=== PATIENT | female | born 1975 | race Two or more races ===

== ENCOUNTER 2024-09-22 14:03 | Inpatient (IN) | payer MEDICAID, OTHER ==
[~2024-09-22] VITALS: Ht 167.6 cm; Wt 107.1 kg
--- NOTE | 2024-09-22 14:42 | ED.PDOC ---
HPI (NEURO) HPI Comments HPI: Poor Historian. 49-year-old female brought in by her daughter for evaluation of seizure-like activity that was witnessed by the daughter in the back seat with the patient was riding in the car. Daughter describes episode as seizure-like activity that lasted approximately 1 minute. There was an episode of urinary incontinence in her car. They went home changed her clothing and brought her back here for evaluation. According to the daughter mother has been having multiple syncopal episodes almost daily recently but did not seek any medical attention. But today was probably the 1st time she sees seizure-like activities that concerned the daughter. Patient does not remember all the details of what happened today. Denies any fall or trauma or injury. Past Medical History: Put use disorder, marijuana use, anxiety, depression, possible diabetes, Past Surgical History: Back surgery, mastoiditis surgery REVIEW OF SYSTEMS: CONSTITUTIONAL: Denies acute: fever, diaphoresis, chills, HEAD: Denies acute: headache, photophobia Eyes: Denies acute: Double vision, vision loss, eye pain, eye discharge. EARS: Denies acute: tinnitus, hearing loss, ear discharge, ear pain, THROAT: Denies acute: sore throat, swelling, difficulty swallowing , pain with swallowing, change in voice. NECK: Denies acute: neck pain, neck swelling, stiff neck. HEART: Denies acute : chest pain, palpitations, LUNGS: Denies acute: SOB, wheezing, cough, hemoptysis ABDOMEN: Denies acute: abdominal pain, Nausea, Vomiting, diarrhea, melena , hematemesis, hematochezia SKIN: Denies acute: rash, redness, lesions, itchiness. EXTREMITIES: Denies acute: calf pain, numbness, tingling, weakness, denies pain in extremity. Denies acute: Low back pain. Neuro: Denies acute: focal neurological deficit, motor or sensory focal neurological deficit, , confusion, dizziness, , cauda equina like symptoms. : Denies acute: dysuria, hematuria, flank pain, increase in urinary frequency. PSYCH: Denies acute: hallucination, suicidal ideation, homicidal ideation. FEMALE: Denies acute: abnormal vaginal bleeding, foul odor, unusual discharge. PHYSICAL EXAM: General: ----mild----acute distress, awake and alert. Head: normocephalic, atraumatic. Neck: supple, trachea is midline, no swelling. Throat: Normal phonation. Eyes:, no erythema, no purulent discharge, no proptosis, no icterus. Heart: regular rate, regular rhythm, no significant murmur appreciated. Lungs: no apparent respiratory distress, Able to speak in full sentences. No wheezing, no rhonchi, no crackles. No stridors Clear to auscultation bilaterally. Abdomen: non tender to palpation, non distended, soft, no guarding, no rebound, + bowel sounds. Neuro: Awake, Alert, oriented to name, self, situation, follows commands GCS=15. Speech is normal. Skin: no petechia, no purpura, no cyanosis, non-pale, not jaundice. Lower extremities: --no - Pitting edema no deformity, no focal swelling, no calf TTP. Makes eye contact. moves all four extremities. Face: no apparent facial droop. Ambulating in the ED independently. PERRLA, EOM-I CN 2-12 are grossly intact, ble. No nystagmus. ED COURSE: Chief Complaint: Seizure Time Seen by MD: 14:17 Primary Care Provider: RENAE Courtney Notes: Nurses Notes, Allergies Information Source: Patient, Relative Mode of Arrival: Ambulatory Was a procedure done? Was a procedure done?: No Differential Diagnosis (SZ) Seizure: Other (SEIZUREDDX include not limited to CVA, cerebellar ischemia/infarct, carotid stenosis, vertebral/carotid artery dissection,, vertebrobasillary insufficiency, Intracranial mass/infection/bleed, encephalopathy, elctrolyte abnormality, thyroid disease, multiple sclerosis, hypoglycemia, drug toxicity, cardiac arrhythmia, sub-theraputic anti-convulsion medications, known seizure disorder, pseudo-seizure.) General Weakness: Anemia, CVA, Dehydration, Dysrhythmia, Electrolyte imbalance, Encephalopathy, Guillain-Berlin, Hypoglycemia, Hypotension, Hypovolemia, Labyrinthitis, Meniere's disease, Myasthenia gravis, Myocardial infarction, Pulmonary embolus, Renal failure, Repiratory failure, TIA, VBI, Vertigo: central, Vertigo: peripheral, Vestibular neuronitis X-Ray, Labs, Meds, VS Vital Signs Date Time Temp Pulse Resp B/P (MAP) Pulse Ox O2 Delivery O2 Flow Rate FiO2 09/22/24 14:31 65 09/22/24 14:26 98.3 70 18 139/74 (95) 97 98.3 Lab Test 09/22/24 17:43 09/22/24 15:24 09/22/24 14:36 09/22/24 14:30 Range/Units Troponin I High Sensitivity 49 *H 16 8 </=34 ng/L White Blood Count 3.1 L 4.4-10.8 10^3/uL Red Blood Count 4.57 4.0-5.20 10^6/uL Hemoglobin 13.0 12.2-16.2 g/dL Hematocrit 38.0 36.0-46.0 % Mean Corpuscular Volume 83.2 80.0-100.0 fL Mean Corpuscular Hemoglobin 28.5 28.0-32.0 pg Mean Corpuscular Hemoglobin Concent 34.2 32.0-36.0 g/dL Red Cell Distribution Width 14.1 11.8-14.3 % Platelet Count 154 140-450 10^3/uL Mean Platelet Volume 8.1 6.9-10.8 fL Neutrophils (%) (Auto) 63.7 37.0-80.0 % Lymphocytes (%) (Auto) 26.6 10.0-50.0 % Monocytes (%) (Auto) 5.5 0.0-12.0 % Eosinophils (%) (Auto) 3.5 0.0-7.0 % Basophils (%) (Auto) 0.7 0.0-2.0 % Neutrophils # (Auto) 2.0 1.6-8.6 10 ^3/uL Lymphocytes # (Auto) 0.8 0.4-5.4 10 ^3/uL Monocytes # (Auto) 0.2 0-1.3 10 ^3/uL Eosinophils # (Auto) 0.1 0-0.8 10 ^3/uL Basophils # (Auto) 0 0-0.2 10 ^3/uL Nucleated Red Blood Cells 0.1 % Sodium Level 144 136-145 mmol/L Potassium Level 4.3 3.5-5.1 mmol/L Chloride Level 107 98-107 mmol/L Carbon Dioxide Level 32 H 20-31 mmol/L Anion Gap 5 5-15 Blood Urea Nitrogen 16 9-23 mg/dL Creatinine 1.03 H 0.550-1.02 mg/dL Glomerular Filtration Rate Calc 66 >90 mL/min BUN/Creatinine Ratio 15.5 10.0-20.0 Serum Glucose 106 74-106 mg/dL Lactic Acid Level 1.0 0.4-2.0 mmol/L Calcium Level 9.8 8.7-10.4 mg/dL Magnesium Level 1.8 1.6-2.6 mg/dL Total Bilirubin 0.4 0.2-1.0 mg/dL Aspartate Amino Transferase (AST) 33 13-40 U/L Alanine Aminotransferase (ALT) 47 H 7-40 U/L Alkaline Phosphatase 91 46-116 U/L Ammonia < 10 L 11-32 umol/L Total Protein 7.7 5.7-8.2 g/dL Albumin 4.4 3.2-4.8 g/dL Urine Color Yellow Yellow Urine Clarity Turbid H Clear Urine pH 6.0 5.0-9.0 Urine Specific [place] 1.025 1.001-1.035 Urine Protein 1+ H Negative Urine Ketones Negative Negative Urine Blood Negative Negative /uL Urine Nitrite Negative Negative Urine Bilirubin Negative Negative Urine Urobilinogen Normal Negative mg/dL Urine Leukocyte Esterase 3+ Negative /uL Urine RBC 4 0 - 4 /hpf Urine Microscopic WBC 47 H 0-5 /HPF Urine Squamous Epithelial Cells Mod <5 /hpf Urine Bacteria Few H None Seen /hpf Urine Mucus Few None Seen Urine Glucose Normal Normal mg/dL Urine Opiates Screen Neg NEGATIVE Urine Fentanyl Screen Neg NEGATIVE Urine Barbiturates Screen Neg NEGATIVE Urine Phencyclidine Screen Neg NEGATIVE Urine Amphetamines Screen Neg NEGATIVE Urine Benzodiazepines Screen Neg NEGATIVE Urine Cocaine Screen Neg NEGATIVE Urine Cannabinoids Screen Pos NEGATIVE Test 09/22/24 14:19 Range/Units POC Glucose 115 H 70-106 mg/dl [address] [address] Ph: [phone] DIAGNOSTIC IMAGING Diagnostic Imaging Report : [id number] Signed PATIENT: BOOGIE BECKACCT: [id number] UNIT: [id number] : 1975 LOC: ER ROOM / BED: / AGE / SEX: 49 / F ADM STATUS: REG ER SERVICE [id number] ORDERING PHYSICIAN: DASHA ELY DO PROCEDURE(s): HWOCT - HEAD WITHOUT CONTRAST REASON: SEIZURE LIKE, ORDER NUMBER(s): [id number], ACCESSION NUMBER(s): [id number] EXAM: CT HEAD WITHOUT CONTRAST INDICATION: SEIZURE LIKE, TECHNIQUE: CT of the head without intravenous contrast. Radiation Dose : 1. Head: CT Dose: CTDI volume is 57.43 mGy. Dose-length product is 113 1.75 mGy*cm The dose indicators for CT are the volume Computed Tomography (CT) Dose Index (CTDIvol) and the Dose Length Product (DLP), and are measured in units of mGy and mGy-cm, respectively. These indicators are not patient dose, but values generated from the CT scanner acquisition factors. The report includes radiation exposure data for exposures received during this examination. COMPARISON: None FINDINGS: There is no evidence of acute intracranial hemorrhage, extra-axial collection, mass effect, midline shift, herniation or hydrocephalus. The ventricles, sulci and cisterns are age appropriate. The triplett-white differentiation is intact. Patchy periventricular and subcortical white matter hypoattenuation is nonspecific but may be related to small vessel ischemic disease. The visualized paranasal sinuses and mastoid air cells are clear. The surrounding soft tissues and osseous structures are unremarkable. IMPRESSION: 1. No acute intracranial abnormality. Radiation optimization: All CT scans at this facility use at least one of these dose optimization techniques: automated exposure control mA and/or kV adjustment per patient size (includes targeted exams where dose is matched to clinical indication) or iterative reconstruction. ATED BY: RICO MAYORGA MD DICTATED DATE/TIME: 09/22/241511 SIGNED BY: RICO MAYORGA MD SIGNED DATE/TIME: 09/22/241511 CC: [place] [id number] Ph: [phone] DIAGNOSTIC IMAGING Diagnostic Imaging Report : [id number] Signed PATIENT: BOOGIE BECKACCT: [id number] UNIT: [id number] : 1975 LOC: ER ROOM / BED: / AGE / SEX: 49 / F ADM STATUS: REG ER SERVICE [id number] ORDERING PHYSICIAN: DASHA ELY DO PROCEDURE(s): CXRP - CHEST PORTABLE REASON: SEIZURE LIKE ACTIVITY. ORDER NUMBER(s): [id number], ACCESSION NUMBER(s): [id number] EXAM: XR Chest, 1 View CLINICAL INDICATION: SEIZURE LIKE ACTIVITY. TECHNIQUE: Frontal view of the chest. COMPARISON: None FINDINGS: LUNGS AND PLEURAL SPACES: Unremarkable. No consolidation. No pneumothorax. HEART: Unremarkable. No cardiomegaly. MEDIASTINUM: Unremarkable. Normal mediastinal contour. BONES/JOINTS: Unremarkable. No acute fracture. OTHER FINDINGS: . IMPRESSION: No acute cardiopulmonary process. ATED BY: JOB NORTON MD DICTATED DATE/TIME: 09/22/241510 SIGNED BY: JOB NORTON MD SIGNED DATE/TIME: 09/22/241510 CC: Time of 1ST Reevaluation: 21:02 Reevaluation 1ST: Improved Patient Education/Counseling: Diagnosis, Treatment Family Education/Counseling: Diagnosis, Treatment Comments Patient presented with the above HPI.---seizure-like activity/syncope---workup was initiated. patient was found with the above mentioned diagnosis. the following medications were ordered: please refer to order lists of meds and tests obtained by myself Dr. Ely. Patient ED course and VS have been stabilized. Patient has been reassessed in the ED and remained in a stable condition. Pertinent incidental findings were discussed with the patient and/or family. Patient/family voices understanding and is agreeable with plan. Patient has been observed in the ED adequate length of time to insure improvement/stability. Escalation of care considered: Consideration of escalation to observation or admission Patient was ADMITTED to the medicine team for further evaluation and treatment of their presentation. All the reports of any imaging studies that were ordered by myself were reviewed by myself. Departure 1 Departure Time of Disposition: 15:16 Impression: Primary Impression: Syncope and collapse Additional Impressions: Seizure-like activity Elevated troponin UTI (urinary tract infection) Disposition: ADMITTED INPATIENT Admit to: [facility] Condition: Guarded Discharged With: Self Critical Care Note Critical Care Time?: Yes (45 min-critical care time only) Heart Score Heart Score: Heart Score Response (Comments) Value History Slightly Suspicious 0 EKG Normal 0 Age 45-64 1 Risk Factors 1 or 2 risk factors 1 Troponin 1-2 x's Normal limit 1 Total 3 I personally scribed for DASHA ELY DO ([email or web address]) on 09/22/24 at 20:44. Electronically submitted by Al Lau ([facility]). DASHA ELY DO September 22, 2024 14:42
[2024-09-22 14:52] LABS: Basophils # (auto) 0 10 ^3/uL (0-0.2); Basophils % (auto) 0.7 % (0.0-2.0); Eosinophils # (auto) 0.1 10 ^3/uL (0-0.8); Eosinophils % (auto) 3.5 % (0.0-7.0); Lymphocytes # (auto) 0.8 10 ^3/uL (0.4-5.4); Lymphocytes % (auto) 26.6 % (10.0-50.0); Mean Corpuscular Hemoglobin 28.5 pg (28.0-32.0); Mean Corpuscular Hgb Conc. 34.2 g/dL (32.0-36.0); Mean Corpuscular Volume 83.2 fL (80.0-100.0); Monocytes # (auto) 0.2 10 ^3/uL (0-1.3); Monocytes % (auto) 5.5 % (0.0-12.0); Neutrophils % (auto) 63.7 % (37.0-80.0); Nucleated Red Blood Cells % 0.1 %; Platelet Count (auto) 154 10^3/uL (140-450); Red Blood Cells 4.57 10^6/uL (4.0-5.20); Red Cell Distribution Width 14.1 % (11.8-14.3); White Blood Cell 3.1 10^3/uL (4.4-10.8)
[2024-09-22 15:07] LABS: Albumin 4.4 g/dL (3.2-4.8); Alkaline Phosphatase 91 U/L (46-116); Anion Gap 5 (5-15); Aspartate Aminotransferase 33 U/L (13-40); BUN/Creatinine Ratio 15.5 (10.0-20.0); Bilirubin, Total 0.4 mg/dL (0.2-1.0); Blood Urea Nitrogen 16 mg/dL (9-23); Calcium 9.8 mg/dL (8.7-10.4); Chloride 107 mmol/L (98-107); Magnesium 1.8 mg/dL (1.6-2.6); Potassium 4.3 mmol/L (3.5-5.1); Sodium 144 mmol/L (136-145); Total Protein 7.7 g/dL (5.7-8.2)
--- NOTE | 2024-09-22 15:13 | DVH ---
EXAM: XR Chest, 1 View CLINICAL INDICATION: SEIZURE LIKE ACTIVITY. TECHNIQUE: Frontal view of the chest. COMPARISON: None FINDINGS: LUNGS AND PLEURAL SPACES: Unremarkable. No consolidation. No pneumothorax. HEART: Unremarkable. No cardiomegaly. MEDIASTINUM: Unremarkable. Normal mediastinal contour. BONES/JOINTS: Unremarkable. No acute fracture. OTHER FINDINGS: . IMPRESSION: No acute cardiopulmonary process.
--- NOTE | 2024-09-22 15:14 | DVH ---
EXAM: CT HEAD WITHOUT CONTRAST INDICATION: SEIZURE LIKE, TECHNIQUE: CT of the head without intravenous contrast. Radiation Dose : 1. Head: CT Dose: CTDI volume is 57.43 mGy. Dose-length product is 1131.75 mGy*cm The dose indicators for CT are the volume Computed Tomography (CT) Dose Index (CTDIvol) and the Dose Length Product (DLP), and are measured in units of mGy and mGy-cm, respectively. These indicators are not patient dose, but values generated from the CT scanner acquisition factors. The report includes radiation exposure data for exposures received during this examination. COMPARISON: None FINDINGS: There is no evidence of acute intracranial hemorrhage, extra-axial collection, mass effect, midline s hift, herniation or hydrocephalus. The ventricles, sulci and cisterns are age appropriate. The triplett-white differentiation is intact. Patchy periventricular and subcortical white matter hypoattenuation is nonspecific but may be related to small vessel ischemic disease. The visualized paranasal sinuses and mastoid air cells are clear. The surrounding soft tissues and osseous structures are unremarkable. IMPRESSION: 1. No acute intracranial abnormality. Radiation optimization: All CT scans at this facility use at least one of these dose optimization adriel hniques: automated exposure control mA and/or kV adjustment per patient size (includes targeted exam s where dose is matched to clinical indication) or iterative reconstruction.
[2024-09-22 15:15] LABS: Alanine Aminotransferase 47 U/L (7-40); Carbon Dioxide 32 mmol/L (20-31); Glucose 106 mg/dL (74-106)
[2024-09-22 15:30] LABS: Cannabinoid Screen, Urine Pos (NEGATIVE)
[2024-09-22 15:33] LABS: Amphetamine Screen, Urine Neg (NEGATIVE); Barbiturate Scree,Urine Neg (NEGATIVE); Benzodiazephine Screen, Urine Neg (NEGATIVE); Cocaine Screen, Urine Neg (NEGATIVE); Opiate Scree,Urine Neg (NEGATIVE); Phencyclidine Screen, Urine Neg (NEGATIVE)
[2024-09-22 15:40] LABS: Urine Bacteria FEW /hpf (None Seen); Urine Blood Negative /uL (Negative); Urine Clarity Turbid (Clear); Urine Color Yellow (Yellow); Urine Mucus FEW (None Seen); Urine Protein, UAD 1+ (Negative); Urine Specific Gravity 1.025 (1.001-1.035); Urine Squamous Epithelial Cell MOD /hpf (<5); Urine Urobilinogen Normal (Negative); Urine WBC 47 /HPF (0-5)
[2024-09-22] MEDS ORDERED: ONDANSETRON HCL 4 MG/2 ML VIAL IV PRN (19:15)
[2024-09-22] MEDS ORDERED: TEMAZEPAM 15 MG CAP PO PRN (19:15)
[2024-09-22] MEDS ORDERED: LORazepam 2MG/ML-1ML VIAL IV PRN (19:15)
[2024-09-23] VITALS (9 sets, daily range): BP systolic 135–170; BP diastolic 62–78; PULSE 50–62; RESP 15–19; TEMP 97.4–98.5; O2SAT 94–98
[2024-09-23] MEDS: ASPirin-EC 325mg tab PO ONE (00:01)
[2024-09-23] MEDS: cloNIDine HCL 0.1 MG TAB PO ONE (00:02)
[2024-09-23] MEDS: busPIRone HCL 10 MG TAB PO SCH (00:02)
--- NOTE | 2024-09-23 00:08 | DVHHP2 ---
History of Present Illness Reason for Visit: Seizure History of Present Illness 49-year-old female presents for evaluation of seizure-like activity. Patient denies previous history of seizure or being on medication. Patient had a seizure episode witnessed by her daughter lasting approximately 1 minute. Denies head trauma or oral trauma. She does report urinary incontinence. Currently denies headache or blurred vision. No other acute complaints reported. Past Medical History Depression Past Surgical History Back surgery Family History Noncontributory Smoke: No ALCOHOL: occassional Drugs: Marijuana Lives: with Family Review of Systems Review of Systems Review of systems are currently negative otherwise addressed in HPI. Allergies: Uncoded Allergies: ALL CILLINS (Allergy, Severe, 09/22/24) Medications Current Medications Medications Dose Ordered Sig/Chelsea Route Start Time Stop Time Status Last Admin Dose Admin Buspirone HCl 15 mg Q12HR PO 09/22/24 22:00 09/23/24 00:02 15 MG Lorazepam 1 mg Q5MINP PRN IV 09/22/24 19:15 Aspirin 81 mg DAILY PO 09/23/24 10:00 Temazepam 15 mg QHSP PRN PO 09/22/24 19:15 Ondansetron HCl 4 mg Q4HP PRN IV 09/22/24 19:15 Acetaminophen 650 mg Q6HP PRN PO 09/22/24 19:15 Exam Vital Signs Vital Signs Date Time Temp Pulse Resp B/P (MAP) Pulse Ox O2 Delivery O2 Flow Rate FiO2 09/23/24 00:02 191/72 09/22/24 20:46 Room Air* 0 21 09/22/24 20:46 98.0 66 12 95 98.0 Exam Gen: 49-year-old female in no apparent distress Skin: Warm, dry, normal color and texture, no rash. HEENT: Normocephalic atraumatic, mucous membranes moist and pink. Neck: Cervical and supraclavicular nodes normal without enlargement, trachea is midline, thyroid gland is normal without masses. Pulmonary: Clear to auscultation and percussion bilaterally. Cardiac: Regular rate and rhythm. No murmur Abdomen: Soft, nontender, nondistended, bowel sounds present all 4 quadrants, no guarding, no rigidity, no organomegaly. Extremities: No cyanosis, clubbing, no edema Neuro: Cranial nerves II through XII grossly intact, normal affect and speech, no focal motor deficits. Labs/Xrays ORDERING PHYSICIAN: DASHA ELY DO PROCEDURE(s): CXRP - CHEST PORTABLE REASON: SEIZURE LIKE ACTIVITY. ORDER NUMBER(s): [id number], ACCESSION NUMBER(s): [id number] EXAM: XR Chest, 1 View CLINICAL INDICATION: SEIZURE LIKE ACTIVITY. TECHNIQUE: Frontal view of the chest. COMPARISON: None FINDINGS: LUNGS AND PLEURAL SPACES: Unremarkable. No consolidation. No pneumothorax. HEART: Unremarkable. No cardiomegaly. MEDIASTINUM: Unremarkable. Normal mediastinal contour. BONES/JOINTS: Unremarkable. No acute fracture. OTHER FINDINGS: . IMPRESSION: No acute cardiopulmonary process. RING PHYSICIAN: DASHA ELY DO PROCEDURE(s): HWOCT - HEAD WITHOUT CONTRAST REASON: SEIZURE LIKE, ORDER NUMBER(s): [id number], ACCESSION NUMBER(s): [id number] EXAM: CT HEAD WITHOUT CONTRAST INDICATION: SEIZURE LIKE, TECHNIQUE: CT of the head without intravenous contrast. Radiation Dose : 1. Head: CT Dose: CTDI volume is 57.43 mGy. Dose-length product is 1131.75 mGy*cm The dose indicators for CT are the volume Computed Tomography (CT) Dose Index (CTDIvol) and the Dose Length Product (DLP), and are measured in units of mGy and mGy-cm, respectively. These indicators are not patient dose, but values generated from the CT scanner acquisition factors. The report includes radiation exposure data for exposures received during this examination. COMPARISON: None FINDINGS: There is no evidence of acute intracranial hemorrhage, extra-axial collection, mass effect, midline shift, herniation or hydrocephalus. The ventricles, sulci and cisterns are age appropriate. The triplett-white differentiation is intact. Patchy periventricular and subcortical white matter hypoattenuation is nonspecific but may be related to small vessel ischemic disease. The visualized paranasal sinuses and mastoid air cells are clear. The surrounding soft tissues and osseous structures are unremarkable. IMPRESSION: 1. No acute intracranial abnormality. Radiation optimization: All CT scans at this facility use at least one of these dose optimization techniques: automated exposure control mA and/or kV adjustment per patient size (includes targeted exams where dose is matched to clinical indication) or iterative reconstruction. Labs Test 09/22/24 21:57 09/22/24 14:36 09/22/24 14:30 09/22/24 14:19 Range/Units Troponin I High Sensitivity < 3 L </=34 ng/L White Blood Count 3.1 L 4.4-10.8 10^3/uL Red Blood Count 4.57 4.0-5.20 10^6/uL Hemoglobin 13.0 12.2-16.2 g/dL Hematocrit 38.0 36.0-46.0 % Mean Corpuscular Volume 83.2 80.0-100.0 fL Mean Corpuscular Hemoglobin 28.5 28.0-32.0 pg Mean Corpuscular Hemoglobin Concent 34.2 32.0-36.0 g/dL Red Cell Distribution Width 14.1 11.8-14.3 % Platelet Count 154 140-450 10^3/uL Mean Platelet Volume 8.1 6.9-10.8 fL Neutrophils (%) (Auto) 63.7 37.0-80.0 % Lymphocytes (%) (Auto) 26.6 10.0-50.0 % Monocytes (%) (Auto) 5.5 0.0-12.0 % Eosinophils (%) (Auto) 3.5 0.0-7.0 % Basophils (%) (Auto) 0.7 0.0-2.0 % Neutrophils # (Auto) 2.0 1.6-8.6 10 ^3/uL Lymphocytes # (Auto) 0.8 0.4-5.4 10 ^3/uL Monocytes # (Auto) 0.2 0-1.3 10 ^3/uL Eosinophils # (Auto) 0.1 0-0.8 10 ^3/uL Basophils # (Auto) 0 0-0.2 10 ^3/uL Nucleated Red Blood Cells 0.1 % Sodium Level 144 136-145 mmol/L Potassium Level 4.3 3.5-5.1 mmol/L Chloride Level 107 98-107 mmol/L Carbon Dioxide Level 32 H 20-31 mmol/L Anion Gap 5 5-15 Blood Urea Nitrogen 16 9-23 mg/dL Creatinine 1.03 H 0.550-1.02 mg/dL Glomerular Filtration Rate Calc 66 >90 mL/min BUN/Creatinine Ratio 15.5 10.0-20.0 Serum Glucose 106 74-106 mg/dL Lactic Acid Level 1.0 0.4-2.0 mmol/L Calcium Level 9.8 8.7-10.4 mg/dL Magnesium Level 1.8 1.6-2.6 mg/dL Total Bilirubin 0.4 0.2-1.0 mg/dL Aspartate Amino Transferase (AST) 33 13-40 U/L Alanine Aminotransferase (ALT) 47 H 7-40 U/L Alkaline Phosphatase 91 46-116 U/L Ammonia < 10 L 11-32 umol/L Total Protein 7.7 5.7-8.2 g/dL Albumin 4.4 3.2-4.8 g/dL Urine Color Yellow Yellow Urine Clarity Turbid H Clear Urine pH 6.0 5.0-9.0 Urine Specific [place] 1.025 1.001-1.035 Urine Protein 1+ H Negative Urine Ketones Negative Negative Urine Blood Negative Negative /uL Urine Nitrite Negative Negative Urine Bilirubin Negative Negative Urine Urobilinogen Normal Negative mg/dL Urine Leukocyte Esterase 3+ Negative /uL Urine RBC 4 0 - 4 /hpf Urine Microscopic WBC 47 H 0-5 /HPF Urine Squamous Epithelial Cells Mod <5 /hpf Urine Bacteria Few H None Seen /hpf Urine Mucus Few None Seen Urine Glucose Normal Normal mg/dL Urine Opiates Screen Neg NEGATIVE Urine Fentanyl Screen Neg NEGATIVE Urine Barbiturates Screen Neg NEGATIVE Urine Phencyclidine Screen Neg NEGATIVE Urine Amphetamines Screen Neg NEGATIVE Urine Benzodiazepines Screen Neg NEGATIVE Urine Cocaine Screen Neg NEGATIVE Urine Cannabinoids Screen Pos NEGATIVE POC Glucose 115 H 70-106 mg/dl Assessment/Plan Assessment/Plan Assessment Seizure activity, new onset Urinary tract infection Mild troponin elevation Essential hypertension Plan Admit the patient to Med surge to the hospitalist Seizure precautions in place MRI of the brain pending Neurology consult Continue treatment per orders Plan discussed with: Patient My Orders Orders - TED MENDEZ AGACNP Procedure Category Date Status Time Buspirone Hcl Tablet PHA 09/22/24 In Process (Buspar Tablet) 22:00 Lorazepam 2mg/Ml Inj PHA 09/22/24 In Process (Ativan Inj) 19:15 Troponin-I Hs LAB 09/23/24 Logged 04:00 Aspirin Tablet PHA 09/23/24 In Process 10:00 Regular Diet DIET 09/23/24 Transmitted Breakfast Brain Head Wo Contrast MRI 09/22/24 Logged 19:15 * Neurology Consult CONS 09/22/24 Transmitted 19:15 Admit ADMIT 09/22/24 Transmitted 19:15 Temazepam (Restoril) PHA 09/22/24 In Process 19:15 Ondansetron Hcl PHA 09/22/24 In Process (Zofran) 19:15 Condition: Stable SHARA 09/22/24 In Process 19:15 Acetaminophen Tablet PHA 09/22/24 In Process (Tylenol Tablet) 19:15 Bedrest With Bathroom SHARA 09/22/24 In Process Privileg 19:15 Echo 2d Mode Cardiac US 09/22/24 Logged DOP 19:15 Date of Service: September 22, 2024 Billing Provider: TED MENDEZ Common Visit Codes: [id number] INP/OBS CARE (HIGH) TED MENDEZ September 23, 2024 00:08
--- NOTE | 2024-09-23 08:49 | DVH ---
CLINICAL INDICATION: seizure, syncope COMPARISON: CT dated 09/22/2024. TECHNIQUE: Multisequence multiplanar MRI images of the brain were obtained without contrast. FINDINGS: No acute infarct or hemorrhage. No mass or midline shift. There are a few scattered areas of T2/FLAIR hyperintense signal in the periventricular and subcortical white matter are nonspecific. Ventricles and sulci are within normal limits. Basal cisterns are patent. Cerebellum, brainstem, and midline structures are within normal limits. Paranasal sinuses are clear. Orbits are grossly unremark able. There is a cystic structure within the subcutaneous tissues along the right side of the neck ju st below the right ear, measuring up to 1.2 cm in greatest dimension IMPRESSION: 1. No evidence of acute intracranial abnormality. 2. Scattered small foci of T2/FLAIR hyperintense signal in the periventricular and subcortical white matter are nonspecific, but may be seen with mild chronic small-vessel ischemic disease, migraine hea daches, or other vascular phenomena demyelinating disease could also be considered in the appropriate clinical setting. Correlate with clinical findings. 3. Cystic structure in the subcutaneous tissues just caudal to the right ear, possible sebaceous cyst . Correlate with clinical findings.
--- NOTE | 2024-09-23 09:31 | ECG ---
[facility] Test Date: 2024-09-22 Test Time: 14:31:45 Pat Name: BOOGIE ABLDERRAMA Department: ER Room: 0294 B Gender: F [employer] Cutter: YUSRA : 1975 Requested By: DASHA ELY Order Number: [id number] Reading MD: Amilcar Thakkar Measurements Intervals [place] Rate: 65 P: -30 CT: 173 QRS: -17 QRSD: 106 T: 0 QT: 412 QTc: 429 Interpretive Statements Sinus rhythm Borderline left axis deviation Low voltage, precordial leads RSR' in V1 or V2, probably normal variant Consider anterior infarct Borderline T abnormalities, inferior leads Electronically Signed On 09-23-2024 21:11:31 PDT by Amilcar Thakkar Please click the below link to view image of tracing.
[2024-09-23] MEDS: LISINOPRIL 5 MG TAB PO SCH (10:20)
[2024-09-23] MEDS: ASPirin 81 mg TAB PO SCH (10:21)
[2024-09-23] MEDS: levoFLOXacin 500MG 100 ML IV SCH (10:32)
--- NOTE | 2024-09-23 13:04 | DVHPN2 ---
Reviewed: Care Plan, H&P, Labs, Medications, Previous Orders, Radiology Changes from previous H/P or p: No Changes Objective Vitals Vital Signs Date Time Temp Pulse Resp B/P (MAP) Pulse Ox O2 Delivery O2 Flow Rate FiO2 09/23/24 10:20 135/64 09/23/24 08:39 98.0 51 19 95 98.0 09/23/24 08:00 Room Air* 0 21 Intake/Output Intake and Output 09/23/24 07:00 Intake Total 0 ml Balance 0 ml Intake Oral 0 ml # Voids 3 Medications Current Medications Medications Dose Ordered Sig/Chelsea Route Start Time Stop Time Status Last Admin Dose Admin Buspirone HCl 15 mg Q12HR PO 09/22/24 22:00 09/23/24 10:21 15 MG Lorazepam 1 mg Q5MINP PRN IV 09/22/24 19:15 Aspirin 81 mg DAILY PO 09/23/24 10:00 09/23/24 10:21 81 MG Temazepam 15 mg QHSP PRN PO 09/22/24 19:15 Ondansetron HCl 4 mg Q4HP PRN IV 09/22/24 19:15 Acetaminophen 650 mg Q6HP PRN PO 09/22/24 19:15 Lisinopril 10 mg DAILY PO 09/23/24 10:00 09/23/24 10:20 10 MG Levofloxacin/ Dextrose 100 ml @ 100 mls/hr DAILY IV 09/23/24 10:00 09/23/24 10:32 100 MLS/HR Laboratory Results Laboratory Tests 09/22/24 14:36 Chemistry Test 09/22/24 14:36 Albumin 4.4 g/dL (3.2-4.8) Calcium Level 9.8 mg/dL (8.7-10.4) Magnesium Level 1.8 mg/dL (1.6-2.6) Total Protein 7.7 g/dL (5.7-8.2) LFT Test 09/22/24 14:36 Alanine Aminotransferase (ALT) 47 U/L (7-40) H Alkaline Phosphatase 91 U/L (46-116) Aspartate Amino Transferase (AST) 33 U/L (13-40) Total Bilirubin 0.4 mg/dL (0.2-1.0) Urinalysis Test 09/22/24 14:30 Urine Color Yellow (Yellow) Urine Clarity Turbid (Clear) H Urine pH 6.0 (5.0-9.0) Urine Specific [place] 1.025 (1.001-1.035) Urine Protein 1+ (Negative) H Urine Ketones Negative (Negative) Urine Blood Negative /uL (Negative) Urine Nitrite Negative (Negative) Urine Bilirubin Negative (Negative) Urine Urobilinogen Normal mg/dL (Negative) Urine Leukocyte Esterase 3+ /uL (Negative) Urine RBC 4 /hpf (0 - 4) Urine Microscopic WBC 47 /HPF (0-5) H Urine Squamous Epithelial Cells Mod /hpf (<5) Urine Bacteria Few /hpf (None Seen) H Urine Mucus Few (None Seen) Urine Glucose Normal mg/dL (Normal) Labs and/or images reviewed: Labs reviewed by me, Image(s) reviewed by me Assessment/Plan Assessment/Plan New onset seizures: CT head negative, MRI brain negative Ativan IV p.r.n., Neurology consult for Dr. Bear Rodriguez BuSpar UTI blood cultures urine cultures Levaquin Hypertension: Lisinopril Marijuana abuse: Counseling Plan discussed with: Patient My Orders Orders - DIVINA JOE MD Procedure Category Date Status Time Blood Culture DESTIN 09/23/24 Logged 12:56 Urine Bacterial DESTIN 09/23/24 Logged Culture 12:56 Date of Service: September 23, 2024 Billing Provider: DIVINA JOE MD Common Visit Codes: [id number] INP/OBS CARE(HIGH) DIVINA JOE MD September 23, 2024 13:04
[2024-09-23] MEDS: levoFLOXacin 500MG 100 ML IV ONE (20:20)
--- NOTE | 2024-09-23 22:53 | DVHINCON2 ---
Date of service: September 23, [address] Dutta Reason for Consultation Seizure History of Present Illness Ms. Shoaib Dyson is a 49 years old right-handed female with a history of hypertension, depression, anxiety, obesity, she was brought to the [facility] on 09/22/2024 with a chief complaint of seizure-like activity. At this time, she is alert and fully oriented, she provided the following history On 09/22/2024, when she was sitting in the rare seat, her daughter witnessed a brief event where she became nonresponsive, shaking all over body without oral trauma, incontinence (ER note: There was urinary incontinence), and she woke up confused, with complete amnesia about this event. There was no dizziness or other warning symptoms prior to this event. She has never had similar problem before, she denies symptoms of olfactory hallucination, she has no history of seizure, stroke, traumatic brain injury or intracranial infection Urinalysis, 09/22/2024: WBC: 47, urine leukocyte esterase: 3+ UDS, 09/22/2024: Cannabinoids CBC, 09/22/2024: WBC: 3.1 Bun/CR, 09/23/2019 5:16 a.m./1.03 [address] head, 09/22/2024: No acute intracranial abnormality MRI head, 09/23/2024: 1. No evidence of acute intracranial abnormality. 2. Scattered small foci of T2/FLAIR hyperintense signal in the periventricular and subcortical white matter are nonspecific, but may be seen with mild chronic s mall-vessel ischemic disease, migraine headaches, or other vascular phenomena demyelinating disease could also be considered in the appropriate clinical setting. Correlate with clinical findings. 3. Cystic structure in the subcutaneous tissues just caudal to the right ear, possible sebaceous cyst. Correlate with clinical findings. Past Medical History Hypertension, obesity, depression, anxiety Past Surgical History Mastoiditis surgical treatment, lumbar spine surgeries Family History: Patient reports no known family medical history. Family History No major medical problems Social History She vapes, but no history of alcohol or recreational substance abuse Allergies: Uncoded Allergies: ALL CILLINS (Allergy, Severe, 09/22/24) Current Medications Current Medications Medications (Trade) Dose Ordered Sig/Chelsea Route PRN Reason Start Time Stop Time Status Last Admin Aspirin 81 mg DAILY PO 09/23/24 10:00 09/23/24 10:21 Lisinopril (Zestril Tablet) 10 mg DAILY PO 09/23/24 10:00 09/23/24 10:20 Levofloxacin/ Dextrose 100 ml @ 100 mls/hr DAILY IV 09/23/24 10:00 09/23/24 10:32 Review of Systems As above, the other systems are negative Vital Signs Vital Signs Date Time Temp Pulse Resp B/P (MAP) Pulse Ox O2 Delivery O2 Flow Rate FiO2 09/23/24 21:00 98.2 52 15 164/76 (105) 95 98.2 09/23/24 08:00 Room Air* 0 21 Physical Exam GENERAL EXAM: General: the patient is well developed and nourished. No acute distress. HEENT: Normocephalic, neck is supple, no carotid bruits. No mass. RESPIRATORY: Normal respiratory effort with symmetrical lung expansion. Lungs clear to auscultation. CARDIOVASCULAR: Regular rate and rhythm with no murmurs. S1, S2. ABDOMEN: Soft, nontender, normal bowel sound NEUROLOGICAL: MENTAL STATUS: Awake and alert. Oriented to person, place, time and general ci rcumstances. Able to give personal history SPEECH, LANGUAGE, HIGHER CORTICAL FUNCTION: no aphasia or dysathria. CRANIAL NERVES: #2: Intact visual cook to confrontation. The optic discs were sharp #3,4,6: Pupils are equal, round and reactive. EOMs full and conjugate. No nystagmus. #5: Facial sensation intact in all three divisions bilaterally. Mandibular strength intact. #7: Facial muscles symmetrical and strength intact. #8: Hearing grossly normal to voice. #9,10: Uvula and soft palate rise in the midline. Swallow and voice are normal. #11: Trapezius and sternomastoid strength intact bilaterally. #12: Tongue midline. No fasciculations or atrophy. SENSATION: Sensation to touch and pinprick is normal. MOTOR: Normal tone in the upper and lower extremity. Normal muscle bulk. No fasciculations. No abnormal movements or posturing. Muscle strength of the major groups in the upper extremities is 5/5. Muscle strength of the major groups in the lower extremities is 5/5. REFLEXES: Deep tendon reflexes normal and symmetrical. No pathological reflexes. CEREBELLAR/COORDINATION: Finger to nose is normal bilaterally. GAIT/STATION: deferred. Labs/Diagnostic Data Labs Test 09/23/24 12:12 09/22/24 14:36 09/22/24 14:30 09/22/24 14:19 Range/Units Troponin I High Sensitivity 17 </=34 ng/L White Blood Count 3.1 L 4.4-10.8 10^3/uL Red Blood Count 4.57 4.0-5.20 10^6/uL Hemoglobin 13.0 12.2-16.2 g/dL Hematocrit 38.0 36.0-46.0 % Mean Corpuscular Volume 83.2 80.0-100.0 fL Mean Corpuscular Hemoglobin 28.5 28.0-32.0 pg Mean Corpuscular Hemoglobin Concent 34.2 32.0-36.0 g/dL Red Cell Distribution Width 14.1 11.8-14.3 % Platelet Count 154 140-450 10^3/uL Mean Platelet Volume 8.1 6.9-10.8 fL Neutrophils (%) (Auto) 63.7 37.0-80.0 % Lymphocytes (%) (Auto) 26.6 10.0-50.0 % Monocytes (%) (Auto) 5.5 0.0-12.0 % Eosinophils (%) (Auto) 3.5 0.0-7.0 % Basophils (%) (Auto) 0.7 0.0-2.0 % Neutrophils # (Auto) 2.0 1.6-8.6 10 ^3/uL Lymphocytes # (Auto) 0.8 0.4-5.4 10 ^3/uL Monocytes # (Auto) 0.2 0-1.3 10 ^3/uL Eosinophils # (Auto) 0.1 0-0.8 10 ^3/uL Basophils # (Auto) 0 0-0.2 10 ^3/uL Nucleated Red Blood Cells 0.1 % Sodium Level 144 136-145 mmol/L Potassium Level 4.3 3.5-5.1 mmol/L Chloride Level 107 98-107 mmol/L Carbon Dioxide Level 32 H 20-31 mmol/L Anion Gap 5 5-15 Blood Urea Nitrogen 16 9-23 mg/dL Creatinine 1.03 H 0.550-1.02 mg/dL Glomerular Filtration Rate Calc 66 >90 mL/min BUN/Creatinine Ratio 15.5 10.0-20.0 Serum Glucose 106 74-106 mg/dL Lactic Acid Level 1.0 0.4-2.0 mmol/L Calcium Level 9.8 8.7-10.4 mg/dL Magnesium Level 1.8 1.6-2.6 mg/dL Total Bilirubin 0.4 0.2-1.0 mg/dL Aspartate Amino Transferase (AST) 33 13-40 U/L Alanine Aminotransferase (ALT) 47 H 7-40 U/L Alkaline Phosphatase 91 46-116 U/L Ammonia < 10 L 11-32 umol/L Total Protein 7.7 5.7-8.2 g/dL Albumin 4.4 3.2-4.8 g/dL Urine Color Yellow Yellow Urine Clarity Turbid H Clear Urine pH 6.0 5.0-9.0 Urine Specific [place] 1.025 1.001-1.035 Urine Protein 1+ H Negative Urine Ketones Negative Negative Urine Blood Negative Negative /uL Urine Nitrite Negative Negative Urine Bilirubin Negative Negative Urine Urobilinogen Normal Negative mg/dL Urine Leukocyte Esterase 3+ Negative /uL Urine RBC 4 0 - 4 /hpf Urine Microscopic WBC 47 H 0-5 /HPF Urine Squamous Epithelial Cells Mod <5 /hpf Urine Bacteria Few H None Seen /hpf Urine Mucus Few None Seen Urine Glucose Normal Normal mg/dL Urine Opiates Screen Neg NEGATIVE Urine Fentanyl Screen Neg NEGATIVE Urine Barbiturates Screen Neg NEGATIVE Urine Phencyclidine Screen Neg NEGATIVE Urine Amphetamines Screen Neg NEGATIVE Urine Benzodiazepines Screen Neg NEGATIVE Urine Cocaine Screen Neg NEGATIVE Urine Cannabinoids Screen Pos NEGATIVE POC Glucose 115 H 70-106 mg/dl Assessment Possibly the patient had new onset grand mal seizure Plan/Recommendation Monitoring Supportive treatment Telemetry EEG Ativan for seizure breakthrough Preventive seizure treatment is not indicated She has been advised not to drive until she cleared DMV report in the chart More recommendation per clinical course Progress: Poor This medical document was created using an electronic medical record system with [employer] dictation system. Although this document has been carefully reviewed, there may still be some phonetic and typographical errors. These areas are purely typographical due to imperfections of the software programs, an d do not reflect any compromise in the patient's medical care. Plan discussed with: Patient, Other NOA ALVARENGA MD September 23, 2024 22:53
[2024-09-24] VITALS (8 sets, daily range): BP systolic 123–146; BP diastolic 62–78; PULSE 45–60; RESP 16; TEMP 98–98.3; O2SAT 92–97
--- NOTE | 2024-09-24 11:59 | DVHPN2 ---
Reviewed: Care Plan, H&P, Labs, Medications, Previous Orders, Radiology Changes from previous H/P or p: No Changes Objective Vitals Vital Signs Date Time Temp Pulse Resp B/P (MAP) Pulse Ox O2 Delivery O2 Flow Rate FiO2 09/24/24 10:33 145/62 09/24/24 08:54 98.2 45 16 92 98.2 09/23/24 20:00 Room Air* 0 21 Intake/Output Intake and Output 09/24/24 07:00 Intake Total 1060 ml Balance 1060 ml Intake Oral 960 ml IV Total 100 ml # Voids 5 Medications Current Medications Medications Dose Ordered Sig/Chelsea Route Start Time Stop Time Status Last Admin Dose Admin Buspirone HCl 15 mg Q12HR PO 09/22/24 22:00 09/24/24 10:34 15 MG Lorazepam 1 mg Q5MINP PRN IV 09/22/24 19:15 Aspirin 81 mg DAILY PO 09/23/24 10:00 09/24/24 10:34 81 MG Temazepam 15 mg QHSP PRN PO 09/22/24 19:15 Ondansetron HCl 4 mg Q4HP PRN IV 09/22/24 19:15 Acetaminophen 650 mg Q6HP PRN PO 09/22/24 19:15 Lisinopril 10 mg DAILY PO 09/23/24 10:00 09/24/24 10:33 10 MG Levofloxacin/ Dextrose 100 ml @ 100 mls/hr DAILY IV 09/23/24 10:00 09/24/24 10:34 100 MLS/HR Laboratory Results Laboratory Tests 09/22/24 14:36 Urinalysis Test 09/22/24 14:30 Urine Color Yellow (Yellow) Urine Clarity Turbid (Clear) H Urine pH 6.0 (5.0-9.0) Urine Specific [place] 1.025 (1.001-1.035) Urine Protein 1+ (Negative) H Urine Ketones Negative (Negative) Urine Blood Negative /uL (Negative) Urine Nitrite Negative (Negative) Urine Bilirubin Negative (Negative) Urine Urobilinogen Normal mg/dL (Negative) Urine Leukocyte Esterase 3+ /uL (Negative) Urine RBC 4 /hpf (0 - 4) Urine Microscopic WBC 47 /HPF (0-5) H Urine Squamous Epithelial Cells Mod /hpf (<5) Urine Bacteria Few /hpf (None Seen) H Urine Mucus Few (None Seen) Urine Glucose Normal mg/dL (Normal) Labs and/or images reviewed: Labs reviewed by me, Image(s) reviewed by me Assessment/Plan Assessment/Plan Possible New onset grandmal seizures: CT head negative, MRI brain negative Ativan IV p.r.n., Neurology consult for Dr. Sifuentes appreciated Depression BuSpar UTI blood cultures urine cultures Levaquin Hypertension: Lisinopril Marijuana abuse: Counseling Patient was advised not to drive and neurologist sent a letter to the [facility] pending Plan discussed with: Patient My Orders Orders - DIVINA JOE MD Procedure Category Date Status Time Blood Culture DESTIN 09/23/24 In Process 12:56 Urine Bacterial DESTIN 09/23/24 Logged Culture 12:56 * Neurology Consult CONS 09/23/24 Transmitted 12:57 Date of Service: September 24, 2024 Billing Provider: DIVINA JOE MD Common Visit Codes: [id number] INP/OBS CARE(HIGH) DIVINA JOE MD September 24, 2024 11:59
[2024-09-25 01:00] VITALS: BP 148/65; PULSE 56; RESP 16; TEMP 98.6; O2SAT 95
[2024-09-25 05:00] VITALS: BP 138/73; PULSE 50; RESP 16; TEMP 98.1; O2SAT 91
[2024-09-25 08:03] VITALS: BP 131/64; PULSE 47; RESP 16; TEMP 98.3; O2SAT 94
[2024-09-25] MEDS: ACETAMINOPHEN 325 MG TAB PO PRN (08:45)
--- NOTE | 2024-09-25 09:58 | DVHPN2 ---
Reviewed: Care Plan, H&P, Labs, Medications, Previous Orders, Radiology Changes from previous H/P or p: No Changes Objective Vitals Vital Signs Date Time Temp Pulse Resp B/P (MAP) Pulse Ox O2 Delivery O2 Flow Rate FiO2 09/25/24 08:44 131/64 09/25/24 08:03 98.3 47 16 94 98.3 09/24/24 20:00 Room Air* 0 21 Intake/Output Intake and Output 09/25/24 07:00 Intake Total 990 ml Balance 990 ml Intake Oral 890 ml IV Total 100 ml # Voids 7 Medications Current Medications Medications Dose Ordered Sig/Chelsea Route Start Time Stop Time Status Last Admin Dose Admin Buspirone HCl 15 mg Q12HR PO 09/22/24 22:00 09/25/24 08:44 15 MG Lorazepam 1 mg Q5MINP PRN IV 09/22/24 19:15 Aspirin 81 mg DAILY PO 09/23/24 10:00 09/25/24 08:43 81 MG Temazepam 15 mg QHSP PRN PO 09/22/24 19:15 Ondansetron HCl 4 mg Q4HP PRN IV 09/22/24 19:15 Acetaminophen 650 mg Q6HP PRN PO 09/22/24 19:15 09/25/24 08:45 650 MG Lisinopril 10 mg DAILY PO 09/23/24 10:00 09/25/24 08:44 10 MG Levofloxacin/ Dextrose 100 ml @ 100 mls/hr DAILY IV 09/23/24 10:00 09/25/24 08:43 100 MLS/HR Laboratory Results Laboratory Tests 09/22/24 14:36 Urinalysis Test 09/22/24 14:30 Urine Color Yellow (Yellow) Urine Clarity Turbid (Clear) H Urine pH 6.0 (5.0-9.0) Urine Specific [place] 1.025 (1.001-1.035) Urine Protein 1+ (Negative) H Urine Ketones Negative (Negative) Urine Blood Negative /uL (Negative) Urine Nitrite Negative (Negative) Urine Bilirubin Negative (Negative) Urine Urobilinogen Normal mg/dL (Negative) Urine Leukocyte Esterase 3+ /uL (Negative) Urine RBC 4 /hpf (0 - 4) Urine Microscopic WBC 47 /HPF (0-5) H Urine Squamous Epithelial Cells Mod /hpf (<5) Urine Bacteria Few /hpf (None Seen) H Urine Mucus Few (None Seen) Urine Glucose Normal mg/dL (Normal) Microbiology Microbiology Date/Time Source Procedure Growth Status 09/23/24 13:17 Blood Blood Culture - Preliminary NO GROWTH AFTER 24 HOURS OF INCUBATION. Resulted Labs and/or images reviewed: Labs reviewed by me, Image(s) reviewed by me Assessment/Plan Assessment/Plan Possible New onset grandmal seizures: CT head negative, MRI brain negative Ativan IV p.r.n., Neurology consult for Dr. Sifuentes appreciated Depression BuSpar UTI blood cultures urine cultures Levaquin Hypertension: Lisinopril Marijuana abuse: Counseling Patient was advised not to drive and neurologist sent a letter to the [facility] pending Plan discussed with: Patient My Orders Orders - DIVINA JOE MD Procedure Category Date Status Time Eeg Awake/Sleep/Act EEG 09/24/24 Transmitted 11:58 Date of Service: September 25, 2024 Billing Provider: DIVINA JOE MD Common Visit Codes: [id number] INP/OBS CARE(HIGH) DIVINA JOE MD September 25, 2024 09:58
[2024-09-25] MEDS ORDERED: LEVO500T91 PO (09:59)
--- NOTE | 2024-09-25 10:04 | DVHDS2 ---
Discharge Summary Date of Admission September 22, 2024 at 19:15 Date of Discharge: September 25, 2024 Admitting Diagnosis Seizures Wounds: None Labs/Diagnostic Data: Laboratory Results Test 09/23/24 12:12 09/22/24 14:36 09/22/24 14:30 09/22/24 14:19 Troponin I High Sensitivity 17 ng/L (</=34) White Blood Count 3.1 10^3/uL (4.4-10.8) Red Blood Count 4.57 10^6/uL (4.0-5.20) Hemoglobin 13.0 g/dL (12.2-16.2) Hematocrit 38.0 % (36.0-46.0) Mean Corpuscular Volume 83.2 fL (80.0-100.0) Mean Corpuscular Hemoglobin 28.5 pg (28.0-32.0) Mean Corpuscular Hemoglobin Concent 34.2 g/dL (32.0-36.0) Red Cell Distribution Width 14.1 % (11.8-14.3) Platelet Count 154 10^3/uL (140-450) Mean Platelet Volume 8.1 fL (6.9-10.8) Neutrophils (%) (Auto) 63.7 % (37.0-80.0) Lymphocytes (%) (Auto) 26.6 % (10.0-50.0) Monocytes (%) (Auto) 5.5 % (0.0-12.0) Eosinophils (%) (Auto) 3.5 % (0.0-7.0) Basophils (%) (Auto) 0.7 % (0.0-2.0) Neutrophils # (Auto) 2.0 10 ^3/uL (1.6-8.6) Lymphocytes # (Auto) 0.8 10 ^3/uL (0.4-5.4) Monocytes # (Auto) 0.2 10 ^3/uL (0-1.3) Eosinophils # (Auto) 0.1 10 ^3/uL (0-0.8) Basophils # (Auto) 0 10 ^3/uL (0-0.2) Nucleated Red Blood Cells 0.1 % Sodium Level 144 mmol/L (136-145) Potassium Level 4.3 mmol/L (3.5-5.1) Chloride Level 107 mmol/L (98-107) Carbon Dioxide Level 32 mmol/L (20-31) Anion Gap 5 (5-15) Blood Urea Nitrogen 16 mg/dL (9-23) Creatinine 1.03 mg/dL (0.550-1.02) Glomerular Filtration Rate Calc 66 mL/min (>90) BUN/Creatinine Ratio 15.5 (10.0-20.0) Serum Glucose 106 mg/dL (74-106) Lactic Acid Level 1.0 mmol/L (0.4-2.0) Calcium Level 9.8 mg/dL (8.7-10.4) Magnesium Level 1.8 mg/dL (1.6-2.6) Total Bilirubin 0.4 mg/dL (0.2-1.0) Aspartate Amino Transferase (AST) 33 U/L (13-40) Alanine Aminotransferase (ALT) 47 U/L (7-40) Alkaline Phosphatase 91 U/L (46-116) Ammonia < 10 umol/L (11-32) Total Protein 7.7 g/dL (5.7-8.2) Albumin 4.4 g/dL (3.2-4.8) Urine Color Yellow (Yellow) Urine Clarity Turbid (Clear) Urine pH 6.0 (5.0-9.0) Urine Specific [place] 1.025 (1.001-1.035) Urine Protein 1+ (Negative) Urine Ketones Negative (Negative) Urine Blood Negative /uL (Negative) Urine Nitrite Negative (Negative) Urine Bilirubin Negative (Negative) Urine Urobilinogen Normal mg/dL (Negative) Urine Leukocyte Esterase 3+ /uL (Negative) Urine RBC 4 /hpf (0 - 4) Urine Microscopic WBC 47 /HPF (0-5) Urine Squamous Epithelial Cells Mod /hpf (<5) Urine Bacteria Few /hpf (None Seen) Urine Mucus Few (None Seen) Urine Glucose Normal mg/dL (Normal) Urine Opiates Screen Neg (NEGATIVE) Urine Fentanyl Screen Neg (NEGATIVE) Urine Barbiturates Screen Neg (NEGATIVE) Urine Phencyclidine Screen Neg (NEGATIVE) Urine Amphetamines Screen Neg (NEGATIVE) Urine Benzodiazepines Screen Neg (NEGATIVE) Urine Cocaine Screen Neg (NEGATIVE) Urine Cannabinoids Screen Pos (NEGATIVE) POC Glucose 115 mg/dl (70-106) Other Laboratory Tests 09/22/24 14:36 Brief Hx & Hospital Course: Year-old female with a history of depression hypotension marijuana abuse came in for possible seizures seen by Neurology Dr. Sifuentes CT head negative MRI brain negative possible new onset grand mal seizures. Placed on Ativan injection p.r.n. patient did not have any seizures after admission EEG pending UTI treated with Levaquin patient is being discharged home prescription for Levaquin transmitted to pharmacy she was advised not to drive and follow up with Neurology Dr. Sifuentes in 10 days. She was also advised to follow up with the primary Dr and psychiatrist Consults/Reason for consult Neurology Dr. Sifuentes Operations or Procedures CT head Condition at Discharge: Fair Final Diagnosis/Problems List Possible New onset grandmal seizures: CT head negative, MRI brain negative Ativan IV p.r.n., Neurology consult for Dr. Sifuentes appreciated Depression BuSpar UTI blood cultures urine cultures Levaquin Hypertension: Lisinopril Marijuana abuse: Counseling Patient was advised not to drive and neurologist sent a letter to the [facility] EEG pending Discharge Disposition: Home Discharge Instruct/Medications Diet: Regular Activity: See Comment Activity comment: Not to drive until cleared by Neurology Follow Up/Referral: Follow up with the primary Dr in one week Follow up with your psychiatrist Follow up with the Neurology Dr. Sifuentes in 10 days Medications: Levaquin Transmitted to [facility] 39 (Time Taken for discharge summary 39 minutes) Discharge Statement: "Patient was advised to return to the ER or call 911 if any headaches, dizziness, shortness of breath, chest pain, abdominal pain, bleeding, fevers, or worsening of medical condition. Patient was counseled about treatment plan, medications, possible side effects, patientverbalized understanding. All questions were answered to the best of my ability. This discharge took greater then 30 minutes in planning, reviewing documentation, counseling the patient, and discussing with other team members." ASSESSMENT ASSESSMENT Hospital Course Improved Assessment Possible New onset grandmal seizures: CT head negative, MRI brain negative Ativan IV p.r.n., Neurology consult for Dr. Sifuentes appreciated Depression BuSpar UTI blood cultures urine cultures Levaquin Hypertension: Lisinopril Marijuana abuse: Counseling Patient was advised not to drive and neurologist sent a letter to the [facility] EEG pending Date of Service: September 25, 2024 Billing Provider: DIVINA JOE MD Common Visit Codes: [id number] INP/OBS CARE(HIGH) DIVINA JOE MD September 25, 2024 10:04
[2024-09-25 11:16] VITALS: BP 131/64; PULSE 47; RESP 16; TEMP 98.3; O2SAT 94
[2024-09-25 11:51] VITALS: BP 129/70; PULSE 51; RESP 16; TEMP 98.4; O2SAT 96
--- NOTE | 2024-09-28 08:37 | DVHSR ---
APPROVED REPORT EXAM: Two-dimensional and M-mode echocardiogram with Doppler and color Doppler. Blood Pressure: 144/62 mmHg INDICATION Syncope RISK FACTORS Height: 5' 6", Weight: 236 DIMENSIONS LVDd4.9 (3.8-5.7cm)LA (2D)4.4 (1.9-4.0cm)Aortic Root3.3 (2.0-3.7cm) LVDs3.4 (2.5-4.0cm)LA (MM) (1.9-4.0cm)Aortic Cusp Exc1.9 (1.5-2.0cm) EF (%) 60.0 (55-70%)Rt. Atrium4.6 (1.9-4.0cm)Asc. Aorta cm IVSd1.1 (0.7-1.1cm)RV (D) (1.8-2.4cm) PWd1.0 (0.7-1.1cm) Mitral Valve MitralMitral Stenosis E wave0.80m/sMV Mean GR.mmHg A wave0.90m/sMV Peak GR.mmHg E/A ratio0.92D MVAcm2 Aortic Valve Aortic ValveAortic Stenosis V10.80m/Bhavya Mean GR.4mmHg V21.40m/Bhavya Peak GR.8mmHg LVOT Diameter2.2 (1.8-2.4cm)Doppler AVA2.17cm2 Pulmonic Valve V20.80m/s Conclusion Sinus rhythm. Biatrial enlargement. Valves appear to be structurally normal. EF of 50% with normal RV function. Doppler is unremarkable. No pericardial effusion masses or vegetations.
== END 2024-09-25 11:36 | disposition home or self-care (01) | DRG 463 ==
LOC: ER 14:03 → OVERFLOW 19:15 → WEST WING 23:36
PROVIDERS: ADMIT Family Medicine; ATTEND Family Medicine
DX: N30.00 Acute cystitis without hematuria (principal); G40.409 Other generalized epilepsy and epileptic syndromes, not intractable, without status epilepticus; E66.9 Obesity, unspecified; F12.10 Cannabis abuse, uncomplicated; F32.A Depression, unspecified; I10 Essential (primary) hypertension; R32 Unspecified urinary incontinence; F41.9 Anxiety disorder, unspecified; Z71.51 Drug abuse counseling and surveillance of drug abuser; Z68.38 Body mass index [BMI] 38.0-38.9, adult; Z79.899 Other long term (current) drug therapy
CPT/HCPCS: 36415; 70450; 70551; 71045; 80053; 80307; 81001; 82140; 82962; 83605; 83735; 84484; 85025; 87040; 87077; 87186; 93005; 93306; 99291; G0378; J1956